=== PATIENT | male | born 1960 | race Caucasian/White ===

== ENCOUNTER → 2020-08-17 10:52 | Outpatient (BNVA) | payer MEDICAID, SELFPAY | PROVIDERS: Visit Provider Internal Medicine Pulmonary Disease | DX: J44.9 Chronic obstructive pulmonary disease, unspecified (principal); Z20.822 Contact with and (suspected) exposure to COVID-19 | CPT/HCPCS: 87635 ==

== ENCOUNTER 2021-01-15 13:16 | Outpatient (CLI) | payer MEDICAID, SELFPAY ==
--- NOTE | 2021-01-15 13:19 | CT_ITS ---
WS: [id number] LDCT LUNG CANCER SCREENING TECHNIQUE: Noncontrast CT of the chest with coronal and sagittal reformatted images. CLINICAL INFORMATION: F17.210 - Nicotine dependence, cigarettes, uncomplicated COMPARISON: None. DLP: 63.29 mGy.cm DIvol: 1.[address] scans at [facility] use at least one of these dose optimization techniques: automat ed exposure control; mA and/or kV adjustment per patient size (includes targeted exams where dose is matched to clinical indication); or iterative reconstruction. FINDINGS: Advanced chronic emphysematous changes. Bulla formation in the right upper lobe. Chronic appearing fi brosis and bronchiectasis in the right lung apex. Micronodular opacities in both lower lobes and ling jaja likely infectious or inflammatory. Associated bronchiectasis. Spiculated opacity in the left upper lobe posteriorly measuring 1.4 x 1.5 CM. Recommend further evalu ation with PET/CT. Neoplasm is not excluded. No available comparisons. Additional small 4 mm opacity left upper lobe posterior left. No mediastinal or hilar lymphadenopathy. No axillary lymphadenopathy. Normal thoracic spine. CT/CT lung screening [id number] IMPRESSION: PET/CT recommended of the 1.4 x 1.5 cm left upper lobe spiculated n odule which is nonspecific but suspicious for neoplasm. LUNG-RADS: 4B-Suspicious FOLLOW UP: PET/CT recommended
--- NOTE | 2021-01-18 11:26 | PC.NURSE ---
Left voicemail for Dr. Nagel's nurse. Pt needs PET scan to follow up on suspicious lung nodules. Bren NOE
== END 2021-01-15 13:17 | disposition home or self-care (01) ==
LOC: RAD 13:18
PROVIDERS: Visit Provider Internal Medicine Pulmonary Disease
DX: Z12.2 Encounter for screening for malignant neoplasm of respiratory organs (principal); F17.210 Nicotine dependence, cigarettes, uncomplicated
CPT/HCPCS: 71271

== ENCOUNTER → 2021-02-12 00:01 | Outpatient (BNVA) | payer MEDICAID, SELFPAY | PROVIDERS: PCP Family Medicine; Visit Provider Internal Medicine Pulmonary Disease | DX: Z20.822 Contact with and (suspected) exposure to COVID-19 (principal) | CPT/HCPCS: 87635 ==

== ENCOUNTER → 2021-05-13 09:54 | Outpatient (BNVA) | payer MEDICAID, SELFPAY | PROVIDERS: PCP Family Medicine; Visit Provider Internal Medicine Pulmonary Disease | DX: Z20.822 Contact with and (suspected) exposure to COVID-19 (principal); J44.9 Chronic obstructive pulmonary disease, unspecified | CPT/HCPCS: 87635 ==

== ENCOUNTER → 2021-05-25 11:04 | Outpatient (BNVA) | payer MEDICAID, SELFPAY | PROVIDERS: PCP Family Medicine; Visit Provider Family Medicine | DX: R91.1 Solitary pulmonary nodule (principal); J44.9 Chronic obstructive pulmonary disease, unspecified | CPT/HCPCS: 71046 ==

== ENCOUNTER → 2022-03-14 14:09 | Outpatient (BNVA) | payer MEDICAID, SELFPAY | PROVIDERS: PCP Family Medicine; Visit Provider Family Medicine | DX: R05.9 Cough, unspecified (principal); J32.9 Chronic sinusitis, unspecified; J18.9 Pneumonia, unspecified organism; J44.1 Chronic obstructive pulmonary disease with (acute) exacerbation; J44.9 Chronic obstructive pulmonary disease, unspecified | CPT/HCPCS: 87400; 87426 ==

== ENCOUNTER → 2023-10-05 11:34 | Outpatient (BNVA) | payer MEDICAID, SELFPAY | PROVIDERS: PCP Nurse Practitioner Family; Visit Provider Nurse Practitioner Family | DX: L02.91 Cutaneous abscess, unspecified (principal); J44.9 Chronic obstructive pulmonary disease, unspecified; L98.9 Disorder of the skin and subcutaneous tissue, unspecified; L21.9 Seborrheic dermatitis, unspecified | CPT/HCPCS: 87070; 87075; 87077; 87184; 87205 ==

== ENCOUNTER → 2023-12-26 10:53 | Outpatient (BNVA) | payer MEDICAID, SELFPAY | PROVIDERS: PCP Nurse Practitioner Family; Referring Provider Nurse Practitioner Family; Visit Provider Nurse Practitioner Family | DX: D48.5 Neoplasm of uncertain behavior of skin (principal); L40.8 Other psoriasis; L57.8 Other skin changes due to chronic exposure to nonionizing radiation; L82.1 Other seborrheic keratosis | CPT/HCPCS: 11102; 99204 ==

== ENCOUNTER → 2024-12-24 09:23 | Outpatient (BNVA) | payer MEDICAID, SELFPAY | PROVIDERS: PCP Nurse Practitioner Family; Visit Provider Nurse Practitioner Family | DX: J44.9 Chronic obstructive pulmonary disease, unspecified (principal); R91.1 Solitary pulmonary nodule; E55.9 Vitamin D deficiency, unspecified; Z79.899 Other long term (current) drug therapy; Z01.89 Encounter for other specified special examinations; Z12.5 Encounter for screening for malignant neoplasm of prostate; J43.9 Emphysema, unspecified; R91.8 Other nonspecific abnormal finding of lung field | CPT/HCPCS: 71046; 80053; 80061; 81003; 82306; 83036; 84443; 85025; G0103 ==

== ENCOUNTER 2024-12-31 09:10 | Outpatient (CLI) | payer MEDICAID, SELFPAY ==
--- NOTE | 2024-12-31 09:30 | CTR_ITS ---
PROCEDURE INFORMATION: Exam: CT Chest Without Contrast; Diagnostic Exam date and time: 12/31/2024 9:33 AM Age: 64 years old Clinical indication: Condition or disease; Lung condition and disease; Pulmonary nodule, solitary; Additional info: R91.1 - solitary pulmonary nodule, CT 2020 TECHNIQUE: Imaging protocol: Diagnostic computed tomography of the chest without contrast. Radiation optimization: All CT scans at this facility use at least one of these dose optimization techniques: automated exposure control; mA and/or kV adjustment per patient size (includes targeted exams where dose is matched to clinical indication); or iterative reconstruction. COMPARISON: CT lung screening [id number] 01/15/2021 1:33 PM RADIATION DOSE METRICS: Total DLP (mGy-cm): 286.83 FINDINGS: Lungs: Two adjacent pulmonary nodules in the left upper lobe (series 4, images 20-24). The more lateral nodule measures up to 12 mm in the axial plane. The more medial nodule measures up to 15 mm in the axial plane. Previously seen spiculated nodule in the superior segment of the left lower lobe on CT scan dated 01/15/2021 not visualized on today's exam. No other significant pulmonary nodules or masses. Severe centrilobular and paraseptal emphysema with significant bullous changes in the right upper lobe and to a lesser extent the left upper lobe. Stable chronic fibrotic changes and bronchiectasis in the right lung apex. Pleural spaces: Unremarkable. No pneumothorax. No pleural effusion. Heart: Heart size within normal limits. No pericardial effusions. Coronary arteries: No significant coronary artery calcifications. Lymph nodes: Nonspecific precarinal lymph node measuring up to 12 mm in its short axis. Otherwise, no significant mediastinal or hilar lymphadenopathy. Vasculature: Atherosclerotic calcifications of the thoracic aorta without aneurysm. Bones/joints: No significant focal osseous lesions. No fractures or malalignment. Osteopenia. Soft tissues: Unremarkable. CT/CT chest wo con [id number] IMPRESSION: 1. Two adjacent pulmonary nodules in the left upper lobe (series 4, images 20-24). The more lateral nodule measures up to 12 mm in the axial plane. The more medial nodule measures up to 15 mm in the axial plane. Findings highly concerning for a neoplastic process. Given size of these nodules, recommend pulmonology consultation to establish management plan which may include further evaluation with PET-CT scan. 2. Previously seen spiculated nodule in the superior segment of the left lower lobe on CT scan dated 01/15/2021 not visualized on today's exam. 3. No other significant pulmonary nodules or masses. 4. Severe emphysema. 5. Stable chronic fibrotic changes and bronchiectasis in the right lung apex. 6. Nonspecific precarinal lymph node measuring up to 12 mm in its short axis. COMMENTS: The presence of pulmonary emphysema on CT is an independent risk factor for lung cancer. In the absence of a history or active diagnosis of lung cancer, it is recommended that this patient with emphysema be evaluated for enrollment in a low dose CT lung cancer screening program.
== END 2024-12-31 09:11 | disposition home or self-care (01) ==
LOC: RAD 09:12
PROVIDERS: PCP Nurse Practitioner Family; Visit Provider Nurse Practitioner Family
DX: R91.1 Solitary pulmonary nodule (principal); J43.8 Other emphysema; M85.80 Other specified disorders of bone density and structure, unspecified site
CPT/HCPCS: 71250

== ENCOUNTER → 2025-01-13 08:32 | Outpatient (BNVA) | payer MEDICAID, SELFPAY | PROVIDERS: PCP Nurse Practitioner Family; Visit Provider Internal Medicine | DX: J47.9 Bronchiectasis, uncomplicated (principal); J43.9 Emphysema, unspecified; R91.1 Solitary pulmonary nodule; J18.9 Pneumonia, unspecified organism; J96.10 Chronic respiratory failure, unspecified whether with hypoxia or hypercapnia; Z87.891 Personal history of nicotine dependence; Z99.81 Dependence on supplemental oxygen; R91.8 Other nonspecific abnormal finding of lung field; J44.9 Chronic obstructive pulmonary disease, unspecified | CPT/HCPCS: 99204; Q3014 ==

== ENCOUNTER → 2025-01-20 13:40 | Outpatient (BNVA) | payer MEDICAID, SELFPAY | PROVIDERS: PCP Nurse Practitioner Family; Visit Provider Nurse Practitioner Family | DX: L40.8 Other psoriasis (principal); L85.3 Xerosis cutis; B07.8 Other viral warts; L57.8 Other skin changes due to chronic exposure to nonionizing radiation; L82.1 Other seborrheic keratosis; Z08 Encounter for follow-up examination after completed treatment for malignant neoplasm; Z85.828 Personal history of other malignant neoplasm of skin | CPT/HCPCS: 99214 ==

== ENCOUNTER 2025-01-31 11:00 | Outpatient (CLI) | payer MEDICAID, SELFPAY ==
--- NOTE | 2025-01-31 12:30 | PETR_ITS ---
PROCEDURE INFORMATION: Exam: PET/CT Skull Base to Mid-thigh Exam date and time: 01/31/2025 12:25 PM Age: 64 years old Clinical indication: Symptoms: Lung nodules; Additional info: Multiple lung nodules LABS AND CLINICAL REPORTS: Glucose: 139 mg/dl Treatment strategy for malignancy (PET staging): Initial Staging (PI) TECHNIQUE: Imaging protocol: Following at least four-hour fasting and following the injection of radiopharmaceutical, low dose CT images were obtained. Then, PET images were obtained. Attenuation corrected images were constructed using the CT scan. Fused images of PET and CT were reviewed. The standardized uptake values (SUV) reported below are maximum values within a region of interest, expressed in gm/ml. Exam includes orbital meatal line to mid-thigh. SUV normalization method: BodyWeight Radiopharmaceutical: 11.43 mCi F-18 FDG (Fluorodeoxyglucose), IV. Time of imaging post radiopharmaceutical administration: 56 minutes Injection site: L AC COMPARISON: CT chest wo con [id number] 12/31/2024 9:33 AM FINDINGS: Brain: Visualized brain has normal physiologic uptake. Salivary glands: Solitary right and 2 left parotid FDG avid foci without discrete underlying CT abnormality, SUV max 16.2 on the right on axial image 23, SUV max 5.3 of the superficial left-sided focus on axial image 26, and SUV max 7.1 of the deeper left-sided focus on axial image 32. Pharynx: No abnormal uptake. Larynx: No abnormal uptake. Lungs, pleura and trachea: Redemonstrated overlying predominant emphysematous change. Two stable adjacent left upper lobe nodular opacities, largest measuring 1.5 cm with SUV max 12.1 on axial image 91. Stable posterior right upper lobe scarring/fibrotic change with associated bronchiectasis. Developed multiple non FDG avid right basilar nodular opacities. Heart: Normal physiologic uptake. Mediastinal space: No abnormal uptake. Liver: No abnormal uptake. Calcified granuloma. Gallbladder and biliary ducts: No abnormal uptake. Pancreas: No abnormal uptake. Spleen: No abnormal uptake. Adrenal glands: No abnormal uptake. Kidneys and ureters: Normal physiologic uptake. Stomach and bowel: No abnormal uptake. Reproductive: Prostatomegaly. No abnormal uptake. Vasculature: No abnormal uptake. Moderate systemic atherosclerotic calcification without aortic aneurysm. Lymph nodes: FDG avid nonenlarged mediastinal and bilateral hilar nodes, AP window nodes showing SUV max 5.2, right hilum showing SUV max 6.7, and left hilum showing SUV max 4.9. Stable mildly prominent precarinal lymph node is non FDG avid. Skeleton: No suspicious abnormal uptake in the visualized axial and appendicular skeleton. Degenerative changes along the spine and grade 1 anterolisthesis of L5 on S1 in the setting of bilateral L5 pars interarticularis defects. Soft tissues: No abnormal uptake in the visualized head, neck, chest, abdomen, pelvis, and extremities. METRICS: Mediastinal blood pool: SUV mean 1.9 Liver uptake: SUV mean 2.3 PET/PET skull to thigh INIT [id number] IMPRESSION: 1. Two stable adjacent FDG avid left upper lobe nodules suspicious for malignancy. 2. FDG avid nonenlarged mediastinal and bilateral hilar nodes may be metastatic or reactive. 3. Developed multiple non FDG avid right basilar nodule opacities are likely infectious or inflammatory. 4. Bilateral FDG avid parotid foci without discrete underlying CT abnormality. Benign and malignant lesions are in the differential. Consider follow-up contrast-enhanced soft tissue neck CT.
== END 2025-01-31 11:01 | disposition home or self-care (01) ==
LOC: RAD 11:00
PROVIDERS: PCP Nurse Practitioner Family; Visit Provider Internal Medicine
DX: R91.8 Other nonspecific abnormal finding of lung field (principal); R93.89 Abnormal findings on diagnostic imaging of other specified body structures; J43.9 Emphysema, unspecified; J47.9 Bronchiectasis, uncomplicated; J84.10 Pulmonary fibrosis, unspecified; K76.89 Other specified diseases of liver; N40.0 Benign prostatic hyperplasia without lower urinary tract symptoms; I70.90 Unspecified atherosclerosis; R59.9 Enlarged lymph nodes, unspecified; R93.7 Abnormal findings on diagnostic imaging of other parts of musculoskeletal system; M43.17 Spondylolisthesis, lumbosacral region
CPT/HCPCS: 78815; A9552

== ENCOUNTER → 2025-02-06 08:25 | Outpatient (BNVA) | payer MEDICAID, SELFPAY | PROVIDERS: PCP Nurse Practitioner Family; Visit Provider Internal Medicine | DX: J47.9 Bronchiectasis, uncomplicated (principal); R91.1 Solitary pulmonary nodule; J18.9 Pneumonia, unspecified organism; J43.9 Emphysema, unspecified; J96.10 Chronic respiratory failure, unspecified whether with hypoxia or hypercapnia; Z99.81 Dependence on supplemental oxygen; F12.90 Cannabis use, unspecified, uncomplicated; Z87.891 Personal history of nicotine dependence | CPT/HCPCS: 99214 ==

== ENCOUNTER → 2025-02-11 13:23 | Outpatient (BNVA) | payer MEDICAID, SELFPAY | PROVIDERS: PCP Nurse Practitioner Family; Visit Provider Internal Medicine | DX: J47.9 Bronchiectasis, uncomplicated (principal); J43.9 Emphysema, unspecified; J96.10 Chronic respiratory failure, unspecified whether with hypoxia or hypercapnia; Z99.81 Dependence on supplemental oxygen; J18.9 Pneumonia, unspecified organism; R91.1 Solitary pulmonary nodule; Z87.891 Personal history of nicotine dependence | CPT/HCPCS: 99214 ==